=== PATIENT | male | born 1990 | race Two or more races ===

== ENCOUNTER 2016-12-03 20:09 | Emergency (ER) | payer SELFPAY ==
[~2016-12-03] VITALS: Ht 177.8 cm; Wt 60.9 kg
[~2016-12-03 20:09] MED LIST: CIPROFLOXACIN H10 ML RIGHT EYE; NAPROSYN500 MG PO; NOHOMEMEDS; ULTRAM50 MG PO; ZOFRAN ODT4 MG PO
[2016-12-04] MEDS ORDERED: FLONASE16 G1 BOTH NARES (00:04)
[2016-12-04 00:10] VITALS: BP 116/68
== END 2016-12-04 00:44 | disposition home or self-care (01) ==
LOC: EME 20:09
DX: J30.9 Allergic rhinitis, unspecified (principal); R09.82 Postnasal drip; H92.01 Otalgia, right ear; Z87.891 Personal history of nicotine dependence
CPT/HCPCS: 87651 90; 99281; 99282